=== PATIENT | male | born 1955 | race Caucasian/White ===

== ENCOUNTER → 2024-04-11 | Outpatient (CLI) | payer MEDICARE, OTHER, SELFPAY ==
--- NOTE | 2024-04-11 15:37 | XR_ITS ---
Examination: Abdomen sonogram, complete Date and time of exam: April 11, 2024 1551 hrs. Indications: Right upper abdominal pain beginning 5 minutes ago. Technique: Multiple real-time grayscale transabdominal sonographic images of the abdomen have been obtained. 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
== END | disposition home or self-care (01) ==
PROVIDERS: PCP Family Medicine; Referring Provider Family Medicine; Visit Provider Family Medicine
DX: K76.0 Fatty (change of) liver, not elsewhere classified (principal); N28.89 Other specified disorders of kidney and ureter
CPT/HCPCS: 76700

== ENCOUNTER → 2024-04-13 | Outpatient (CLI) | payer MEDICARE, OTHER, SELFPAY ==
--- NOTE | 2024-04-13 14:34 | XR_ITS ---
Examination: CT abdomen with intravenous contrast. Coronal 2-D reconstructions. Sagittal 2-D reconstructions. Date and time of exam:April 13, 2024 1455 hrs. Indications: Onset right upper abdominal pain beginning 5 months ago CTDI: vol (mGy): 8.52 DLP: (mGycm): 286 Technique: Axial images of the abdomen have been obtained, 3 mm slice thickness, 60 cc [id number] 2-D sagittal coronal reconstructions Low dose protocols were performed. One or more of the following dose reduction techniques were used; automated exposure control, adjustment of the mA and/or KV according to patient size, use of iterative reconstruction technique. Findings: No focal liver or splenic lesions Gallbladder wall appears thickened No pancreatic or adrenal mass Moderate bilateral renal parenchymal scar formation Abdominal aortic calcification no aneurysmal dilatation No bowel obstruction Impression: Recommend repeat gallbladder sonography to exclude cholecystitis
[2024-04-13 14:44] LABS: Albumin, Serum 4.1 gm/dL (3.4-4.8); Anion Gap 7 (7-16); BUN/Creatinine Ratio 19 Ratio (12-20); Blood Urea Nitrogen 19 mg/dL (9-23); Calcium 9.3 mg/dL (8.3-10.6); Calcium (Corrected) 9.3 mg/dL (8.5-10.1); Carbon Dioxide 27.2 mMol/L (20.0-31.0); Chloride 105 mMol/L (98-107); Glucose 220 mg/dL (74-106); Osmolality,Calculated 286 (275-295); Potassium 4.4 mMol/L (3.4-5.1); Sodium 139 mMol/L (136-145); eGFR > 60 See Note
== END | disposition home or self-care (01) ==
LOC: SCAT 14:00
PROVIDERS: PCP Family Medicine; Referring Provider Family Medicine; Visit Provider Family Medicine
DX: R10.11 Right upper quadrant pain (principal); Z13.1 Encounter for screening for diabetes mellitus
CPT/HCPCS: 36415; 74160; 80069; A4649; Q9967

== ENCOUNTER 2024-05-22 09:22 | Emergency (ER) | payer OTHER, SELFPAY ==
[2024-05-22 09:23] VITALS: BMI 25.0
--- NOTE | 2024-05-22 09:54 | EDRME_ITS ---
Rapid Medical Screening Exam RME Arrival date/time: 05/22/24 09:22 69-year-old male presents to the emergency department today complaints of right- sided chest swelling Chief Complaint: Chest Pain
--- NOTE | 2024-05-22 09:54 | XR_ITS ---
Examination: PA lateral chest 2 views Technique: Upright PA lateral chest 2 views Exam date and time: May 23, 2019 5:11 AM Comparison March 26, 2011 indications: Chest pain today. Findings: Enlarging nodule right upper lobe, 13 mm compared to 3 mm on January 24, 2012 Possible adjacent 13 mm pulmonary nodule Normal heart size No pneumonia or pulmonary edema Impression: Recommend CT chest without contrast follow-up to assess enlarging pulmonary nodule right upper lobe and possible additional 15 mm pulmonary nodule medial right upper lobe
--- NOTE | 2024-05-22 09:54 | PD.EDRME ---
Rapid Medical Screening Exam RME Arrival date/time: 05/22/24 09:22 69-year-old male presents to the emergency department today complaints of right-sided chest swelling Chief Complaint: Chest Pain
[2024-05-22 09:55] VITALS: BP 169/88; PULSE 96; RESP 16; TEMP 36.6; O2SAT 95
[2024-05-22 10:21] LABS: Basophils # (Auto) 0.1 Thou/mm3 (0.0-0.2); Basophils % (Auto) 1 % (0-2.5); Eosinophils # (Auto) 0.2 Thou/mm3 (0.0-0.5); Eosinophils % (Auto) 1 % (0-10); Hematocrit 48.6 % (41.0-53.0); Hemoglobin 16.6 g/dL (13.5-16.0); Immature Granulocytes % (Auto) 1 % (0-0); Immature Granulocytes Auto 0.07 Thou/mm3 (0.00-0.00); Lymphocytes # (Auto) 3.1 Thou/mm3 (1.0-4.8); Lymphocytes % (Auto) 22 % (10-50); Mean Corpuscular HGB Conc 34.2 g/dl (31.0-37.0); Mean Corpuscular Hemoglobin 28.9 pg (25.0-35.0); Mean Corpuscular Volume 85 fL (80-100); Monocytes # (Auto) 0.9 Thou/mm3 (0.0-0.8); Monocytes % (Auto) 7 % (0-12); Neutrophils # (Auto) 9.5 Thou/mm3 (1.8-7.7); Neutrophils % (Auto) 69 % (37-80); Nucleated Red Blood Cell % 0 /100 WBC (0); Platelet Count 312 Thou/mm3 (140-440); Red Blood Count 5.74 Miln/mm3 (4.50-5.90); White Blood Count 13.7 Thou/mm3 (3.8-10.6)
[2024-05-22 10:24] LABS: B-Type Natriuretic Peptide 66 pg/mL (0-100)
[2024-05-22 10:35] LABS: INR 0.9 (0.9-1.3); Partial Thromboplastin Time 26.8 Seconds (22.0-36.0); Prothrombin Time 10.2 Seconds (9.0-12.2)
[2024-05-22 10:37] LABS: Alanine Aminotransferase 12 U/L (10-49); Albumin, Serum 4.6 gm/dL (3.4-4.8); Albumin/Globulin Ratio 1.8 (1.2-2.2); Alkaline Phosphatase 131 U/L (46-116); Anion Gap 10 (7-16); Aspartate Amino Transferase 11 U/L (0-34); BUN/Creatinine Ratio 13 Ratio (12-20); Bilirubin,Total 0.4 mg/dL (0.3-1.2); Blood Urea Nitrogen 20 mg/dL (9-23); Calcium 10.1 mg/dL (8.3-10.6); Calcium (Corrected) 10.1 mg/dL (8.5-10.1); Carbon Dioxide 25.9 mMol/L (20.0-31.0); Chloride 95 mMol/L (98-107); Creatinine (Component) 1.6 mg/dL (0.6-1.3); Estimated Creatinine Clearance 46.5 mL/min (>60); Globulin 2.6 gm/dL (2.3-3.5); Magnesium 2.1 mg/dL (1.6-2.6); Osmolality,Calculated 290 (275-295); Potassium 4.6 mMol/L (3.4-5.1); Sodium 131 mMol/L (136-145); Total Protein 7.2 gm/dL (5.7-8.2); Troponin I 0.042 ng/mL (0.0-0.045); eGFR 46 See Note
[2024-05-22 10:43] LABS: Glucose 547 mg/dL (74-106)
[2024-05-22 11:19] LABS: Beta Hydroxybutyrate 0.8 mmol/L (<0.6)
[2024-05-22 11:25] LABS: Glucose Estimated Average 341 mg/dL (80-131); Hemoglobin A1C 13.5 % Hgb (4.8-6.0)
--- NOTE | 2024-05-22 12:09 | PD.EDCHEST ---
ED Chest Pain RME/HPI General Chief Complaint: Chest Pain Stated Complaint: R-SIDE CHEST SWOLLEN X3 WEEKS Arrival date/time: 05/22/24 09:22 RME / HPI RME / HPI narrative: 05/22/24 09:22 69-year-old male presents to the emergency department today complaints of right-sided chest swelling DR. WONG SHEFFIELD ED EVALUATION: 69 year old male presents to the Emergency Department with complaint of right-sided chest swelling and pain. He denies any redness or bruising in that area. Denies any fall or injury. Patient states he has not been taking his diabetic medications for a couple days because he has been in pain. PMHx: Hypertension, hypercholesterolemia, diabetes type 2 on metformin and insulin, and back surgery. Social Hx: Patient smokes 1 pack per week. No alcohol or substance use. PCP: Dr. Harper Related Data Previous Rx's ?Medication ?Instructions ?Recorded levaquin 500mg 1 tab PO QDAY #10 tabs 06/28/14 zofran 4mg odt 1 tab buccal q4hprn nausea #10 tabs 06/28/14 Allergies Allergy/AdvReac Type Severity Reaction Status Date / Time haloperidol Allergy Severe Anaphylaxis Verified 05/22/24 09:27 ASA AdvReac Intermediate Abdominal Uncoded 05/22/24 09:27 Pain Review of Systems Review of Systems Systems Reviewed: All systems reviewed, normal except as documented Past Medical History Past Medical History CARDIAC: Positive Hypercholesterolemia and Hypertension ENDOCRINE: Positive Diabetes Mellitus Type 2 Surgical History SURGICAL: Positive of Back Surgery Social History SMOKING STATUS: Current some day smoker (Patient smokes 1 pack per week.) SUBSTANCE USE: marijuana ALCOHOL: Never ED Exam Narrative Physical exam: GENERAL APPEARANCE: alert and oriented x 4, well-developed, well-nourished, no acute distress VITALS: All vitals were reviewed and the pulse ox is 96% on room air, which is normal according to my interpretation. HEENT: Normocephalic, atraumatic; pupils equal, round, reactive to light; EOMI; mucous membranes pink, moist; oropharynx clear NECK: Supple LUNGS: Mild decreased air movement bilaterally; no wheezes, no rales, no rhonchi CHEST: There is mild edema to the right chest wall. HEART: Regular rate, regular rhythm; normal S1, S2; no murmurs ABDOMEN: non distended; normal BS; soft, no tenderness, no guarding, no rebound; no masses, no organomegaly, no hernia BACK: no CVA tenderness EXTREMITIES: atraumatic; no edema NEUROLOGIC: awake; alert and oriented x4; cranial nerves II-XII grossly intact; no focal sensory or motor deficits PSYCHIATRIC: appropriate mood and affect SKIN: warm, dry, normal color; no rashes Course Quality Measures none Orders Category Date Time Status Bedside Blood Glucose Q1HR Care 05/22/24 12:09 Completed Clockmaker Apprentice Q4H START 00 Care 05/22/24 13:36 Completed Clockmaker Apprentice Q4H START 00 Care 05/22/24 13:[address] chest wo con Stat Exams 05/22/24 13:06 Completed XR chest 2V Stat Exams 05/22/24 09:54 Completed A1C [Glycohemoglobin w (eAG)] Stat Lab 05/22/24 10:51 Completed B-Type Natriuretic Peptide Stat Lab 05/22/24 10:00 Completed Beta Hydroxybutyrate Stat Lab 05/22/24 10:51 Completed CBC Stat Lab 05/22/24 10:00 Completed Comprehensive Metabolic Panel Stat Lab 05/22/24 10:00 Completed Drug Screen,Urine Stat Lab 05/22/24 14:44 Completed Lactate (Lactic Acid) Stat Lab 05/22/24 13:18 Completed Magnesium Stat Lab 05/22/24 10:00 Completed Partial Thromboplastin Time Stat Lab 05/22/24 10:00 Completed Procalcitonin Stat Lab 05/22/24 13:18 Completed Prothrombin Time with INR Stat Lab 05/22/24 10:00 Completed Troponin I Stat Lab 05/22/24 10:00 Completed Insulin Regular Med 05/22/24 12:10 Discontinued 5 unit IV X1 ONE Sodium Chloride 0.9% 1000 ml [Ns] 1,000 ml Med 05/22/24 12:10 Discontinued IV 999 mls/hr Vital Signs Vital signs: Vital Signs Temperature 97.8 F 05/22/24 09:55 Pulse Rate 96 05/22/24 09:55 Respiratory Rate 16 05/22/24 09:55 Blood Pressure 169/88 H 05/22/24 09:55 Pulse Oximetry (%) 95 05/22/24 09:55 Oxygen Delivery Method Room Air 05/22/24 09:55 Procedures -ED Smoking Cessation Time Spent Discussing Smoking Cessation w/Patient (min): 3 Patient Acknowledges Need for Cessation: Yes Additional Comments: The patient was counseled as to the multiple risks to their health from continued use of tobacco products. It was explained that continuing to smoke may lead to multiple short and longwall shearer operator negative health consequences, including but not limited to mouth/esophageal/lung cancer, COPD, and heart disease. The patient states they understand these risks, and also understand the options and resources available to them to help them stop smoking. Nicotine replacement therapy, local hotlines, and local resources were discussed as viable options for helping them stop their tobacco use. The total time spent counseling the patient regarding tobacco cessation was 3 minutes. Chest Pain MDM Narrative MDM Narrative:: I, Gisele Tomas, am scribing for and in the presence of Dr. Escobar. Patient data External records reviewed:: None (no previous visits) Clinical information provided by:: patient Social determinants that could affect healthcare access:: substance use (marijuana and smokes 1 pack of cigarettes per week.) Patient has the following chronic illnesses:: Hypertension, hypercholesterolemia, diabetes type 2 on metformin and insulin, and back surgery. How is presenting disease/condition affected by chronic disease/condition?: exacerbated by Evaluation data The following diagnostics were reviewed and interpreted by me:: lab results and radiology exam(s) Lab and/or radiology exams considered but not ordered:: none Interpretation Summary: Procedure(s): XR chest 2V Accession Number(s): [id number] cc: Paola (MIRIAM),Camilo PINEDA; Jerry Pearson MD; Gustavo Harper MD~ Examination: PA lateral chest 2 views Technique: Upright PA lateral chest 2 views Exam date and time: May 23, 2019 5:11 AM Comparison March 26, 2011 indications: Chest pain today. Findings: Enlarging nodule right upper lobe, 13 mm compared to 3 mm on January 24, 2012 Possible adjacent 13 mm pulmonary nodule Normal heart size No pneumonia or pulmonary edema Impression: Recommend CT chest without contrast follow-up to assess enlarging pulmonary nodule right upper lobe and possible additional 15 mm pulmonary nodule medial right upper lobe Dictated By: Jerry Pearson MD Procedure(s): CT chest [facility] Accession Number(s): [id number] cc: Jerry Pearson MD; Christianne Escobar MD; Gustavo Harper MD~ Examination: CT chest, without intravenous contrast. Sagittal and coronal 2-D reconstructions. Exam date and time: May 22, 2024 at 1442 hrs. Indications: Chest film today Lobe pulmonary nodules CTDI:vol (mGy) 11.6 DLP: (mGycm) 191 Technique: Multiple 3.0 mm axial sections of the chest to been obtained. Bone and lung density settings are obtained. Sagittal and coronal 2-D reconstructions have been obtained. Low dose protocols were performed. One or more of the following dose reduction techniques were used; automated exposure control, adjustment of the mA and/or KV according to patient size, use of iterative reconstruction technique. Findings: Thoracic aortic calcification no aneurysmal dilatation Pulmonary artery segments are not enlarged Moderate calcification left anterior descending coronary artery 14 mm pulmonary nodule right upper lobe noncalcified No pneumonia or pulmonary edema No focal liver or splenic lesions Osseous structures intact Impression: 14 mm noncalcified pulmonary nodule right upper lobe, differential would include lung carcinoma Dictated By: Jerry Pearson MD Medications / Prescriptions Medications or Prescriptions considered but not ordered:: none Medication administrations:: Medication Administration History Discontinued Medications Sodium Chloride (Ns) 1,000 mls @ 999 mls/hr IV .Q1H1M ONE Stop: 05/22/24 13:10 Last Infusion: 05/22/24 14:29 Dose: Infused Documented By: Admin: 05/22/24 13:26 Dose: 999 mls/hr Documented By: HOUSTON Insulin Human Regular (Insulin Hum Regular 1 Unit/0.01 Ml (Per Unit)) 5 unit IV X1 ONE Stop: 05/22/24 12:11 Last Admin: 05/22/24 13:25 Dose: 5 unit Documented By: HOUSTON Co-signed By: SELVIN see above if any Consultations Consultation(s) initiated? (list below): No Diagnosis Chest Pain Differential Diagnosis: fracture of rib, pneumothorax, atypical chest pain, costochondritis, chest pain and biliary colic Most likely diagnosis given after review of the tests above:: Pulmonary nodule Pain of right side of body Hyperglycemia Admission Indicated Admission indicated?: not indicated Admission Request Was there a request for admission?: No Disposition Plan Disposition Plan: Discharge Discharge Attestation Discharge Attestation: The patient and all family members were given an opportunity to ask questions and understood the discharge instructions. Discharge instructions specifically effects, indications for sooner follow up or return to the emergency department, and the expected course of current diagnosis. Patient condition: Stable Discharge Plan Plan Patient Disposition: HOME (Self Care) Prescriptions/Referrals Prescriptions/Med Rec: No Action levaquin 500mg 1 tab PO QDAY Qty: 10 0RF zofran 4mg odt 1 tab buccal q4hprn nausea Qty: 10 0RF Referrals: Gustavo Harper MD [Primary Care Provider] - In 1 week Problem List Clinical Impression: Pulmonary nodule, Pain of right side of body, Hyperglycemia Patient/Caregiver Discharge Instructions Education Materials: High Blood Sugar (Hyperglycemia), ED Pulmonary Nodule, Solitary Additional Instructions: Follow up with your doctor for further workup of pulmonary nodule Print Language: Korean Stand Alone Forms: Amisha Award Info., Patient Portal Info Letter
[2024-05-22 12:12] VITALS: BP 164/101; BP 181/71; PULSE 78; RESP 18; TEMP 37; O2SAT 96
--- NOTE | 2024-05-22 13:06 | XR_ITS ---
Examination: CT chest, without intravenous contrast. Sagittal and coronal 2-D reconstructions. Exam date and time: May 22, 2024 at 1442 hrs. Indications: Chest film today Lobe pulmonary nodules CTDI:vol (mGy) 11.6 DLP: (mGycm) 191 Technique: Multiple 3.0 mm axial sections of the chest to been obtained. Bone and lung density settings are obtained. Sagittal and coronal 2-D reconstructions have been obtained. Low dose protocols were performed. One or more of the following dose reduction techniques were used; automated exposure control, adjustment of the mA and/or KV according to patient size, use of iterative reconstruction technique. Findings: Thoracic aortic calcification no aneurysmal dilatation Pulmonary artery segments are not enlarged Moderate calcification left anterior descending coronary artery 14 mm pulmonary nodule right upper lobe noncalcified No pneumonia or pulmonary edema No focal liver or splenic lesions Osseous structures intact Impression: 14 mm noncalcified pulmonary nodule right upper lobe, differential would include lung carcinoma
--- NOTE | 2024-05-22 13:15 | PC.NURSE ---
Patient to er from lobby and taken to rm 5 with c/o pain and swelling to right chest radiating down to right side of abdomen x 3 weeks, worse with movement, new orders received.
[2024-05-22] MEDS: INSULIN HUM REGULAR 1 UNIT/0.01 ML (PER UNIT) 5 UNIT IV (13:25)
[2024-05-22] MEDS: SODIUM CHLORIDE 0.9% 1000 ML 1,000 ML 999 ML IV (13:26)
[2024-05-22 13:28] LABS: Lactate (Lactic Acid) 1.2 mMol/L (0.4-2.0)
[2024-05-22 13:37] VITALS: PULSE 62
[2024-05-22 14:19] VITALS: BP 150/75; PULSE 55; RESP 16; TEMP 36.9; O2SAT 96
[2024-05-22 15:24] LABS: Amphetamine/Methamp Scrn,U Negative (Negative); Barbiturate Screen,Urine Negative (Negative); Benzodiazepines Screen,Urine Negative (Negative); Benzoylecgonine Screen, Ur Negative (Negative); Fentanyl Screen,Urine Negative (Negative); Opiate Screen,Urine Negative (Negative); THC Screen,Urine Positive (Negative)
[2024-05-22 16:12] VITALS: BP 152/78; PULSE 49; RESP 15; TEMP 36.9; O2SAT 93
[2024-05-22 17:17] VITALS: BP 144/64; PULSE 51; RESP 18; TEMP 36.7; O2SAT 95
== END 2024-05-22 17:38 | disposition home or self-care (01) ==
PROVIDERS: Nurse Practitioner Primary Care; Emergency Provider Emergency Medicine; PCP Family Medicine
DX: R91.1 Solitary pulmonary nodule (principal); E11.65 Type 2 diabetes mellitus with hyperglycemia; I10 Essential (primary) hypertension; F17.210 Nicotine dependence, cigarettes, uncomplicated; E78.00 Pure hypercholesterolemia, unspecified
CPT/HCPCS: 36415; 71046; 71250; 80053; 80307; 82010; 83036; 83605; 83735; 83880; 84145; 84484; 85025; 85610; 85730; 99284; J1815; J7030

== ENCOUNTER → 2024-05-23 | Outpatient (CLI) | payer OTHER, MEDICARE, SELFPAY ==
--- NOTE | 2024-05-23 13:30 | XR_ITS ---
Examination: Nuclear medicine hepatobiliary scan, static HIDA scan Date of exam: May 23, 2024 1333 hrs. Indications: Chest pain right upper abdominal pain beginning 4 weeks ago Technique And Findings: 5.8 mCi 99m Hepatolite administered intravenously. Serial imaging obtained immediately through 60 minutes. Homogenous uptake in the liver. Common bile duct small bowel activity noted 1.7 Impression: Gallbladder activity Abnormal gallbladder ejection fraction, 17%, normal greater than 35%
== END | disposition home or self-care (01) ==
LOC: SNUC 13:38
PROVIDERS: PCP Family Medicine; Referring Provider Family Medicine; Visit Provider Family Medicine
DX: R93.2 Abnormal findings on diagnostic imaging of liver and biliary tract (principal)
CPT/HCPCS: 78226; A9537; J2805

== ENCOUNTER → 2024-06-05 | Outpatient (CLI) | payer MEDICARE, OTHER, SELFPAY ==
--- NOTE | 2024-06-05 15:30 | XR_ITS ---
Examination: CT abdomen with intravenous contrast. Coronal 2-D reconstructions. Sagittal 2-D reconstructions. Date and time of exam:June 05, 2024 1557 hours Comparison April 13, 2024 INDICATIONS: Right upper quadrant abdominal pain beginning 2 months ago CTDI: vol (mGy): 6.86 DLP: (mGycm): 227 Technique: Axial images of the abdomen have been obtained, 3 mm slice thickness, 30 cc Isovue-300 2-D sagittal coronal reconstructions Low dose protocols were performed. One or more of the following dose reduction techniques were used; automated exposure control, adjustment of the mA and/or KV according to patient size, use of iterative reconstruction technique. Findings: No focal liver or splenic lesions No definite gallstones No pancreatic or adrenal mass Moderate left renal parenchymal scar formation No hydronephrosis Abdominal aortic calcification no aneurysmal dilatation No pericecal inflammatory changes No bowel obstruction IMPRESSION: Moderate left renal parenchymal scar formation No hydronephrosis No bowel obstruction
== END | disposition home or self-care (01) ==
PROVIDERS: PCP Family Medicine; Referring Provider Family Medicine; Visit Provider Family Medicine
DX: N28.89 Other specified disorders of kidney and ureter (principal)
CPT/HCPCS: 74160; A4649; Q9967